=== PATIENT | female | born 2000 | race Caucasian/White ===

== ENCOUNTER 2018-04-18 16:23 | Emergency (ER) | payer BC ==
[2018-04-18] MEDS ORDERED: NORG1TAB28 (16:35)
[2018-04-18] MEDS ORDERED: SPIR25TA80 PO (16:35)
[2018-04-18] MEDS ORDERED: CETI10CA8 PO (16:35)
--- NOTE | 2018-04-18 16:40 | ER Report ---
History and Physical Time Seen By MD: 16:39 Hx. of Stated Complaint: Laceration to left middle and 4th fingers from kitchen knife HPI/ROS CHIEF COMPLAINT: Laceration HISTORY OF PRESENT ILLNESS: This is a 17-year-old female presents to the emergency department for a laceration to her left ring and middle finger. Approximately 30 minutes prior to arrival patient was making dinner when she lacerated the dorsum side of her left ring and middle finger at the PIP joint. Patient was lightheaded shortly after this however upon arrival she is alert and oriented, interacting well. Bleeding is controlled. CMS intact distal to the injury. She has good flexion and extension of the fingers. No other complaints no nausea or vomiting. REVIEW OF SYSTEMS: Respiratory: No cough, no dyspnea. Cardiovascular: No chest pain, no palpitations. Gastrointestinal: No vomiting, no abdominal pain. Musculoskeletal: No back pain. Integumentary: As above. Allergies: Coded Allergies: No Known Drug Allergies (Unverified , 04/18/18) Home Meds Reported Medications Spironolactone (SPIRONOLACTONE) 25 Mg Tablet, 25 MG PO DAILY, TAB 04/18/18 Cetirizine Hcl (ZYRTEC) 10 Mg Capsule, 10 MG PO QDAY, CAPSULE 04/18/18 Norgestimate-Ethinyl Estradiol (Trinessa Lo Tablet) [id number] Lo Tablet 04/18/18 Past Medical/Surgical History The patient has a past medical and surgical history of collarbone fracture, wears glasses. Reviewed Nurses Notes: Yes Hx Substance Use Disorder: No Hx Alcohol Use: No Constitutional Vital Sign - Last 24 Hours 04/18/18 04/18/18 16:29 17:35 Temp 99.0 Pulse 94 84 Resp 16 16 B/P (MAP) 119/77 111/86 (94) Pulse Ox 97 94 O2 Delivery Room Air Physical Exam General Appearance: The patient is alert, has no immediate need for airway protection and no current signs of toxicity. Eyes: Pupils equal and round no injection. Respiratory: Chest is non tender, lungs are clear to auscultation. Cardiac: regular rate and rhythm. Gastrointestinal: Abdomen is soft and non tender, no masses, bowel sounds normal. Musculoskeletal: Neck: Neck is supple and non tender. Extremities have full range of motion and are non tender. Skin: 2 cm laceration to the dorsum side of the left ring finger, 2 cm laceration to the dorsum of the left middle finger. Flexion and extension are intact to both fingers. Bleeding is controlled. No tendon damage identified. DIFFERENTIAL DIAGNOSIS: After history and physical exam differential diagnosis was considered for laceration. Medical Decision Making ED Course/Re-evaluation ED Course The patient was minutes the room. A history of his were obtained. Differential diagnoses were considered. The wounds were anesthetized and repaired as noted below. Wounds were thoroughly cleansed. The lacerations were bandaged with Adaptic, bacitracin and tube gauze. Patient was instructed to follow-up with the [facility] student health services in 7-8 days for reevaluation and removal of the sutures. She was also instructed to monitor closely for signs of infection such as redness and swelling. Patient expressed understanding, patient was discharged home. Procedure: Laceration repair. Verbal consent was obtained from the patient. Each laceration is 2 cm on the dorsum of the left ring and middle fingers at the PIP. was anesthetized in the usual fashion. The wound was scrubbed, draped and explored to its base with a gloved finger. There were no deep structures involved. No tendon injury was identified. The wound was repaired with 3, simple interrupted sutures on each finger both using 5-0 Prolene. The wound repair was simple. The procedure was performed by myself. Decision to Disposition Date: Apr 18, 2018 Decision to Disposition Time: 17:26 Depart Departure Latest Vital Signs Vital Signs Date Time Temp Pulse Resp B/P (MAP) Pulse Ox O2 Delivery O2 Flow Rate FiO2 04/18/18 17:35 84 16 111/86 (94) 94 Room Air 04/18/18 16:29 99.0 Impression: Primary Impression: Laceration of left ring finger Additional Impression: Laceration of left middle finger Condition: Improved Disposition: HOME OR SELF-CARE Referrals: [facility] Patient Instructions: Acute Wound Care (ED), Finger Laceration (ED) Additional Instructions: Keep wound dry for 48 hours. Follow up with your primary care provider or student health in the next 7-8 days to have sutures removed. Monitor for signs of infection; redness, swelling, heat, discharge, increasing pain or red streaking. Take Tylenol or Ibuprofen as needed for pain. Return to the ER with any concerns. You may change dressing as needed. Problem Qualifiers Primary Impression: Laceration of left ring finger Encounter type: initial encounter Damage to nail status: without damage Foreign body presence: without foreign body Qualified Codes: S61.215A - Laceration without foreign body of left ring finger without damage to nail, initial encounter Additional Impression: Laceration of left middle finger Encounter type: initial encounter Damage to nail status: with damage Foreign body presence: without foreign body Qualified Codes: S61.313A - Laceration without foreign body of left middle finger with damage to nail, initial encounter CINDY [id number] Apr 18, 2018 16:39
[2018-04-18] MEDS ORDERED: DIPHTH/TETANUS/ACEL. PERTUSSIS IM ONLY ONE (16:50)
[2018-04-18 17:35] VITALS: BP 111/86
== END 2018-04-18 17:38 | disposition home or self-care (01) ==
LOC: ER 16:51
DX: S61.215A Laceration without foreign body of left ring finger without damage to nail, initial encounter (principal); S61.213A Laceration without foreign body of left middle finger without damage to nail, initial encounter; W26.0XXA Contact with knife, initial encounter; Y93.G3 Activity, cooking and baking
CPT/HCPCS: 90471; 90715; 99283